=== PATIENT | male | born 2000 | race Caucasian/White ===

== ENCOUNTER 2021-02-09 21:18 | Emergency (ER) | payer OTHER ==
[2021-02-09 21:56] VITALS: BP 113/72; PULSE 68; TEMP 97.9; BMI 18.2
[2021-02-09] MEDS ORDERED: IBUPROFEN 600 MG TABLET (FP) PO ONE ×2 (22:42→22:52)
== END 2021-02-09 23:42 | disposition home or self-care (01) ==
LOC: JERFT 21:18
DX: H92.03 Otalgia, bilateral (principal)
CPT/HCPCS: 99283-25

== ENCOUNTER 2021-03-05 09:05 | Emergency (ER) | payer OTHER ==
[2021-03-05 09:30] VITALS: BP 108/67; PULSE 72; TEMP 98; BMI 18.2
== END 2021-03-05 12:21 | disposition home or self-care (01) ==
LOC: JER 09:05
DX: K59.00 Constipation, unspecified (principal)
CPT/HCPCS: 36415; 82272; 99283-25

== ENCOUNTER 2022-03-23 21:41 | Emergency (ER) | payer OTHER ==
[2022-03-23 21:46] VITALS: RESP 20; BMI 19.6
[2022-03-23] MEDS ORDERED: LIDOCAINE PATCH REMOVAL MC SCH (22:00)
[2022-03-23] MEDS ORDERED: IBUPROFEN 600 MG TABLET (FP) PO ONE ×2 (23:00→23:29)
[2022-03-23] MEDS ORDERED: METHOCARBAMOL 500 MG TABLET PO ONE (23:00)
[2022-03-23] MEDS ORDERED: LIDOCAINE 5% TOPICAL PATCH TP ONE (23:00)
[2022-03-23] MEDS ORDERED: LIDOCAINE 5% TOPICAL PATCH ONE (23:29)
[2022-03-23] MEDS ORDERED: METHOCARBAMOL 500 MG TABLET ONE (23:30)
[2022-03-24 00:47] LABS: URINE APPEARANCE CLOUDY; URINE BILIRUBIN NEGATIVE (NEGATIVE); URINE COLOR YELLOW; URINE GLUCOSE (UA) NEGATIVE (NEGATIVE); URINE KETONE NEGATIVE (NEGATIVE); URINE LEUK ESTERASE NEGATIVE (NEGATIVE); URINE NITRITE NEGATIVE (NEGATIVE); URINE PROTEIN NEGATIVE (NEGATIVE); URINE UROBILINOGEN 0.2 mg/dL (0.2-1.0)
[2022-03-24 01:31] VITALS: BP 120/66; PULSE 58; TEMP 98.2
== END 2022-03-24 01:34 | disposition home or self-care (01) ==
LOC: JER 21:41
DX: M54.89 Other dorsalgia (principal)
CPT/HCPCS: 81003; 99283-25

== ENCOUNTER 2022-11-12 15:25 | Emergency (ER) | payer OTHER ==
[2022-11-12 15:37] VITALS: BP 127/71; PULSE 99; RESP 17; TEMP 98.2; BMI 22.1
[2022-11-12 18:07] LABS: BASO % 0.5 % (0-2.0); EOS % 1.1 % (0-4.5); HEMATOCRIT 44.4 % (35.4-49); HEMOGLOBIN 14.6 GM/dL (11.7-16.9); MCH 29.6 pg (25.7-33.7); MCHC 32.9 g/dl (32.0-35.9); MEAN CELL VOLUME 89.8 fl (80-96); MEAN PLT VOLUME 9.8 fl (7.5-11.1); MONO % 7.8 % (3.8-10.2); NEUT % 66.6 % (42.8-82.8); PLATELET COUNT 229 10^3/uL (134-434); RBC 4.95 M/mm3 (4.00-5.60); RDW 12.5 % (11.9-15.9); WHITE BLOOD COUNT 6.3 K/mm3 (4.0-10.0)
[2022-11-12 18:20] LABS: POTASSIUM 3.5 mmol/L (3.5-5.1)
[2022-11-12 18:24] LABS: CALCIUM 9.2 mg/dL (8.5-10.1)
[2022-11-12 18:25] LABS: ALBUMIN 4.3 g/dl (3.4-5.0); BLOOD UREA NITROGEN 6.9 mg/dL (7-18)
[2022-11-12 18:27] LABS: CREATININE 0.9 mg/dL (0.55-1.3)
[2022-11-12 18:29] LABS: BILIRUBIN,TOTAL 0.9 mg/dL (0.2-1); TOT PROT 7.4 g/dl (6.4-8.2)
== END 2022-11-12 20:14 | disposition home or self-care (01) ==
LOC: JER 15:25
DX: R55 Syncope and collapse (principal)
CPT/HCPCS: 36415; 70450-TC; 72125-TC; 80053; 83735; 84484; 85025; 93005; 93010; 99285-25